=== PATIENT | female | born 1995 | race Caucasian/White ===

== ENCOUNTER 2018-05-18 18:50 | Emergency (ER) | payer OTHER ==
[~2018-05-18] VITALS: Ht 157.5 cm; Wt 54.4 kg
[~2018-05-18 18:50] MED LIST: DESPEC-DM TABL1 EACH PO; OSEL75CA PO; PEPCID40 MG PO; ZOFRAN4 MG PO
[2018-05-19] MEDS ORDERED: PEPCID40 MG PO (03:20)
[2018-05-19] MEDS ORDERED: LEVSIN/SL0.125 MG SL (03:20)
[2018-05-19] MEDS ORDERED: ZOFRAN ODT4 MG PO (03:20)
== END 2018-05-19 03:30 ==
LOC: ER 18:50
DX: R10.11 Right upper quadrant pain (principal); K29.60 Other gastritis without bleeding

== ENCOUNTER 2019-01-07 13:47 | Emergency (ER) | payer OTHER ==
[~2019-01-07] VITALS: Ht 157.5 cm; Wt 53.1 kg
[~2019-01-07 13:47] MED LIST changes: +LEVSIN/SL0.125 MG SL; +ZOFRAN ODT4 MG PO
== END 2019-01-07 16:45 | disposition home or self-care (01) ==
LOC: ER 13:47
DX: G44.209 Tension-type headache, unspecified, not intractable (principal)

== ENCOUNTER → 2019-02-12 | Emergency (ER) | payer OTHER ==
[~2019-02-12] VITALS: Ht 157.5 cm; Wt 53.1 kg
== END | disposition left against medical advice (07) ==
LOC: ER 01:16
DX: Z53.20 Procedure and treatment not carried out because of patient's decision for unspecified reasons (principal)

== ENCOUNTER 2019-03-15 11:48 | Emergency (ER) | payer OTHER ==
[~2019-03-15] VITALS: Ht 157.5 cm; Wt 53.1 kg
[2019-03-15] MEDS ORDERED: ZITHROMAX500 MG PO (14:33)
[2019-03-15] MEDS ORDERED: DOLOGEN CAPLET1 EACH PO (14:33)
[2019-03-15] MEDS ORDERED: TUSNEL LIQUID178 ML PO (14:33)
[2019-03-15] MEDS ORDERED: CLARITIN10 M1 PO (14:33)
== END 2019-03-15 14:50 | disposition home or self-care (01) ==
LOC: ER 11:48
DX: J06.9 Acute upper respiratory infection, unspecified (principal)